=== PATIENT | female | born 1980 | race Caucasian/White ===

== ENCOUNTER 2022-07-23 10:12 | Outpatient (CLI) | payer OTHER | END 2022-07-23 11:14 | disposition home or self-care (01) | LOC: NST 10:12 | PROVIDERS: ATTEND Obstetrics & Gynecology | DX: Z34.83 Encounter for supervision of other normal pregnancy, third trimester (principal) ==

== ENCOUNTER 2022-07-24 11:06 | Outpatient (CLI) | payer OTHER | END 2022-07-24 13:34 | disposition home or self-care (01) | LOC: NST 11:06 | PROVIDERS: ATTEND Obstetrics & Gynecology Maternal & Fetal Medicine | DX: Z34.83 Encounter for supervision of other normal pregnancy, third trimester (principal) ==

== ENCOUNTER 2022-08-24 12:46 | Inpatient (IN) | payer OTHER ==
[~2022-08-24] VITALS: Ht 152.4 cm; Wt 3.2 kg
[2022-08-24] MEDS ORDERED: PRENATA PO (13:22)
[2022-09-07] MEDS ORDERED: OXYC1TAB9 PO (07:48)
[2022-09-07] MEDS ORDERED: KETO10TA2 PO (07:48)
== END 2022-09-07 13:43 | disposition home or self-care (01) | DRG 788 ==
LOC: O/R 09-05 08:42 → OB/GYN 09-05 12:45 → O/R 09-05 15:20 → OB/GYN 09-05 15:26
PROVIDERS: ADMIT Obstetrics & Gynecology Maternal & Fetal Medicine; ATTEND Obstetrics & Gynecology Maternal & Fetal Medicine
PROC: 4A1HXCZ Monitoring of Products of Conception, Cardiac Rate, External Approach (ICD-10-PCS; 2022-09-05)
PROC: 10D00Z1 Extraction of Products of Conception, Low, Open Approach (ICD-10-PCS; principal; 2022-09-05 17:30)
DX: O34.29 Maternal care due to uterine scar from other previous surgery (principal); Z3A.37 37 weeks gestation of pregnancy; Z37.0 Single live birth; Z20.822 Contact with and (suspected) exposure to COVID-19

== ENCOUNTER 2022-11-19 10:50 | Outpatient (CLI) | payer OTHER ==
[~2022-11-19 10:50] MED LIST: KETO10TA2 PO; OXYC1TAB9 PO; PRENATA PO
== END 2022-11-19 11:09 | disposition home or self-care (01) ==
LOC: MAMO-SONO 10:50
PROVIDERS: ATTEND Obstetrics & Gynecology Maternal & Fetal Medicine
DX: N63 Unspecified lump in breast (principal); Z12.31 Encounter for screening mammogram for malignant neoplasm of breast; N64.4 Mastodynia; N60.11 Diffuse cystic mastopathy of right breast